=== PATIENT | male | born 1990 | race Caucasian/White ===

== ENCOUNTER 2024-04-05 18:59 | Emergency (ER) | payer SELFPAY ==
[2024-04-05] MEDS ORDERED: Lorazepam 2 MG/ML VIAL ONE ×2 (19:55→20:40)
[2024-04-05 20:19] LABS: #Basophils 0.04 10x3/uL (0.0-0.2); #Eosinophils 0.02 10x3/uL (0.0-0.5); #Monocytes 0.85 10x3/uL (0.0-1.1); #Neutrophils 9.39 10x3/uL (1.5-8.4); %Basophils 0.4 % (0.0-2.0); %Eosinophils 0.2 % (0.0-6.0); %Lymphocytes 7.9 % (18.0-47.0); %Monocytes 7.6 % (0.0-10.0); %Neutrophils 83.5 % (40.0-75.0); Hematocrit 46.5 % (38.8-50.0); Hemoglobin 15.4 g/dL (13.5-17.5); Mean Corpuscular HGB CONC 33.1 g/dL (32.0-36.0); Mean Corpuscular Hemoglobin 30.4 pg (27.0-33.0); Mean Corpuscular Volume 91.9 fL (81.2-95.1); Mean Platelet Volume 9.2 fL (7.4-10.4); Platelet Count 401 10x3/uL (150-450); Red Blood Cell (RBC) Count 5.06 10x6/uL (4.32-5.72); White Blood Cell (WBC) Count 11.2 10x3/uL (3.5-10.5)
[2024-04-05 20:32] LABS: Acetaminophen Less than 10 mcg/mL (Less than 10); Alcohol Less than 10.0 mg/dL (Less than 10); Salicylate Less than 8.0 mg/dL (Less than 8.0)
[2024-04-05 20:40] LABS: ALT (SGPT) 106 U/L (8-55); AST (SGOT) 77 U/L (5-34); Albumin 4.8 g/dL (3.5-5.0); Alkaline Phosphatase 61 U/L (40-110); Anion Gap 18 mmol/L (10-20); BUN (Urea Nitrogen) 14 mg/dL (8.9-20.6); Bilirubin, Total 0.4 mg/dL (0.2-1.2); CK (CPK) 473 U/L (30-200); Calc. Creatinine Clearance 0 mL/min (70-130); Calcium 10.2 mg/dL (7.8-10.44); Carbon Dioxide 24 mmol/L (22-29); Chloride 104 mmol/L (98-107); Estimated GFR 87; Globulin 2.8 g/dL (2.4-3.5); Glucose 115 mg/dL (70-105); Potassium 4.9 mmol/L (3.5-5.1); Protein, Total 7.6 g/dL (6.0-8.3); Sodium 141 mmol/L (136-145)
[2024-04-05] MEDS ORDERED: Sterile Water 10 ML ONE (21:11)
[2024-04-05] MEDS ORDERED: Ziprasidone 20 MG VIAL ONE (21:11)
== END 2024-04-05 22:37 | disposition home or self-care (01) ==
LOC: CSHERS 18:59
DX: F10.10 Alcohol abuse, uncomplicated (principal); F12.10 Cannabis abuse, uncomplicated; F15.10 Other stimulant abuse, uncomplicated; R44.3 Hallucinations, unspecified
CPT/HCPCS: 80053; 80307; 82550; 85025; 93005; 96361; 96372; 96374; 96376; J2060; J3486

== ENCOUNTER → 2024-04-07 | Emergency (ER) | payer SELFPAY ==
[~2024-04-07] MED LIST: Adenosine 6 mg (2 mL) VIAL ONE; Diazepam 10 MG/2 ML SYRINGE ONE; Haloperidol Lactate 5 MG/ML VIAL ONE; Midazolam HCl 2 mg/2 ml Vial ONE; diphenhydrAMINE 50 MG/ML VIAL ONE
[2024-04-07 14:37] LABS: Actual Bicarbonate (HCO3v) 24.1 mEq/L (22-28); Analyzer IN Cardio CS ER; Base Excess 5.1 mEq/L (-2 - +2); Calcium, Ionized (venous) 1.09 mmol/L (1.16-1.32); Chloride (VBG) 97 mmol/L (98-106); Critical Notified By: T. CROSS; Hematocrit-VBG 46 % (42.0-52.0); Hemoglobin (Hb) 15.7 g/dL (13.2-17.3); Potassium (VBG) 3.53 mmol/L (3.70-5.30); Puncture Site Other Site; Sodium 133 mmol/L (133-146)
[2024-04-07 14:47] LABS: #Basophils 0.06 10x3/uL (0.0-0.2); #Eosinophils 0.08 10x3/uL (0.0-0.5); #Monocytes 0.76 10x3/uL (0.0-1.1); #Neutrophils 6.81 10x3/uL (1.5-8.4); %Basophils 0.7 % (0.0-2.0); %Eosinophils 0.9 % (0.0-6.0); %Lymphocytes 15.5 % (18.0-47.0); %Monocytes 8.3 % (0.0-10.0); %Neutrophils 74.2 % (40.0-75.0); Hematocrit 42.6 % (38.8-50.0); Hemoglobin 14.5 g/dL (13.5-17.5); Mean Corpuscular Hemoglobin 30.1 pg (27.0-33.0); Mean Corpuscular Volume 88.6 fL (81.2-95.1); Mean Platelet Volume 9.1 fL (7.4-10.4); Platelet Count 350 10x3/uL (150-450); RBC Distribution Width 12.5 % (11.5-14.5); Red Blood Cell (RBC) Count 4.81 10x6/uL (4.32-5.72); White Blood Cell (WBC) Count 9.2 10x3/uL (3.5-10.5)
[2024-04-07 15:03] LABS: Amphetamine Detected (NotDetected); Barbiturates Screen Not Detected (NotDetected); Benzodiazepine Screen Detected (NotDetected); Cocaine Metabolite Screen Not Detected (NotDetected); Methadone Not Detected (NotDetected); Methamphetamine Detected (NotDetected); Opiate Screen Not Detected (NotDetected); Oxycodone Screen Not Detected (NotDetected); Phencyclidine (PCP) Not Detected (NotDetected); THC/Cannabinoid Screen Not Detected (NotDetected); Tricyclic Screen Not Detected (NotDetected)
[2024-04-07 15:12] LABS: ALT (SGPT) 75 U/L (8-55); AST (SGOT) 56 U/L (5-34); Albumin 4.4 g/dL (3.5-5.0); Alkaline Phosphatase 57 U/L (40-110); Anion Gap 16 mmol/L (10-20); BUN (Urea Nitrogen) 15 mg/dL (8.9-20.6); CK (CPK) 620 U/L (30-200); Calc. Creatinine Clearance 0 mL/min (70-130); Calcium 10.1 mg/dL (7.8-10.44); Carbon Dioxide 22 mmol/L (22-29); Chloride 99 mmol/L (98-107); Estimated GFR 100; Globulin 2.4 g/dL (2.4-3.5); Glucose 151 mg/dL (70-105); Potassium 3.8 mmol/L (3.5-5.1); Protein, Total 6.8 g/dL (6.0-8.3); Sodium 133 mmol/L (136-145)
[2024-04-07 15:13] LABS: Acetaminophen Less than 10 mcg/mL (Less than 10); Alcohol Less than 10.0 mg/dL (Less than 10); Lipase 47 U/L (8-78); Salicylate Less than 8.0 mg/dL (Less than 8.0)
[2024-04-07 15:17] LABS: Troponin I 0.014 ng/mL (< 0.028)
[2024-04-07 16:50] LABS: Actual Bicarbonate (HCO3v) 19.5 mEq/L (22-28); Analyzer IN Cardio CS ER; Base Excess -3.4 mEq/L (-2 - +2); Calcium, Ionized (venous) 0.97 mmol/L (1.16-1.32); Chloride (VBG) 103 mmol/L (98-106); Hematocrit-VBG 46 % (42.0-52.0); Hemoglobin (Hb) 15.5 g/dL (13.2-17.3); Potassium (VBG) 3.58 mmol/L (3.70-5.30); Puncture Site Other Site; Sodium 136 mmol/L (133-146); pH (venous) 7.433 (7.32-7.43)
== END ==
LOC: CSHERS 13:42
DX: I47.10 Supraventricular tachycardia, unspecified (principal); F14.10 Cocaine abuse, uncomplicated
CPT/HCPCS: 36415; 70450; 71045; 80053; 80306; 80307; 82140; 82550; 82805; 83605; 83690; 83735; 84484; 85025; 93005; 96372; 96374; 96375; J0153; J1200; J1630; J2250; J3360

== ENCOUNTER 2024-04-26 06:26 | Emergency (ER) | payer SELFPAY ==
[2024-04-26] MEDS ORDERED: Lorazepam 2 MG/ML VIAL ONE (06:35)
== END 2024-04-26 06:49 | disposition home or self-care (01) ==
LOC: CSHERS 06:26
DX: F15.10 Other stimulant abuse, uncomplicated (principal); F22 Delusional disorders
CPT/HCPCS: 96372; 99283; J2060